=== PATIENT | female | born 1935 | race American Indian/Alaskan Native ===

== ENCOUNTER 2017-07-29 12:12 | Inpatient (IN) | payer MEDICARE, MEDICAID ==
[2017-07-29 13:57] LABS: BASO # 0.1 K/uL (0.0-0.2); BASO % 1.1 % (0.0-2.0); EOS # 0.2 K/uL (0.0-0.7); EOS % 2.9 % (0.0-4.0); HEMATOCRIT 36.1 % (34.0-47.0); LYMPH # 1.9 K/uL (1.0-4.3); LYMPH % 27.9 % (20.0-40.0); MEAN CELL VOLUME 86.3 fL (81.0-99.0); MEAN CORPUSCULAR HEMOGLOBIN 28.4 pg (27.0-31.0); MEAN CORPUSCULAR HGB CONC 32.9 g/dL (33.0-37.0); MEAN PLATELET VOLUME 9.3 fL (7.2-11.7); MONO # 0.5 K/uL (0.0-0.8); MONO % 7.9 % (0.0-10.0); NRBC % 0.1 % (0.0-2.0); RED CELL DISTRIBUTION WIDTH 14.7 % (11.5-14.5); WHITE BLOOD COUNT 6.9 K/uL (4.8-10.8)
--- NOTE | 2017-07-29 13:57 | C.PDOC ---
History Of Present Illness 82 y/o female c/o being unable to ambulate, bilateral leg swelling, incontinence , and general fatigue for 2 months. Patient notes that the symptoms are chronic after being d/c 2 months prior and she reports that she cannot take care of herself. Oatient denies chest pain, SOB, or palpitations. No fever, chills, nausea, or vomiting. PMD: Zhen Felton Time Seen by Provider: 07/29/17 13:10 Chief Complaint (Nursing): Female Genitourinary History Per: Patient History/Exam Limitations: no limitations Onset/Duration Of Symptoms: Days (2 months, chronic) Current Symptoms Are (Timing): Still Present Severity: Mild Associated Symptoms: denies: Fever, Chills, Nausea, Vomiting Recent travel outside of the [place]: No Additional History Per: Patient Past Medical History Reviewed: Historical Data, Nursing Documentation, Vital Signs Vital Signs: Last Vital Signs Temp 98.0 F 07/29/17 15:46 Pulse 82 07/29/17 15:46 Resp 20 07/29/17 15:46 BP 152/88 H 07/29/17 15:46 Pulse Ox 98 07/29/17 15:46 - Medical History PMH: Gastrointestinal Ulcer, HTN Surgical History: Pacemaker Family History: States: Unknown Family Hx - Social History Hx Alcohol Use: No Hx Substance Use: No Review Of Systems Except As Marked, All Systems Reviewed And Found Negative. Constitutional: Positive for: Other (general fatigue). Negative for: Fever, Chills Cardiovascular: Negative for: Chest Pain, Palpitations Respiratory: Negative for: Shortness of Breath Gastrointestinal: Negative for: Nausea, Vomiting Genitourinary: Positive for: Incontinence Musculoskeletal: Positive for: Leg Pain (bilateral leg swelling), Other (Unable to ambulate) Neurological: Negative for: Headache Physical Exam - Physical Exam Appears: Well, Non-toxic, No Acute Distress Skin: Warm, Dry Head: Atraumatic, Normacephalic Eye(s): bilateral: Normal Inspection, PERRL, EOMI Oral Mucosa: Moist Chest: Symmetrical Cardiovascular: Rhythm Regular, No Murmur Respiratory: Normal Breath Sounds, No Rales, No Rhonchi, No Wheezing Gastrointestinal/Abdominal: Soft, No Tenderness, Hernia (Soft ?Umbilical hernia. ) Back: Normal Inspection, No CVA Tenderness Extremity: Normal ROM (x4), Pedal Edema (+2 pitting edema) Neurological/Psych: Oriented x3, Normal Speech, Normal Cognition ED Course And Treatment - Laboratory Results Result Diagrams: 07/29/17 13:52 07/29/17 13:52 O2 Sat by Pulse Oximetry: 98 (RA) Pulse Ox Interpretation: Normal Medical Decision Making Medical Decision Making: Present c/o being unable to ambulate, bilateral leg swelling, incontinence, and general fatigue s/p d/c 2 months prior. Plans: * EKG * Blood labs * CXR * UA * Urinary cath Patient needs correction care due to being unable to care for her ADL. EKG shows atrial sensed ventricular paced rhythm at 80bpm. Cxray negative. UA shows uti. Antibiotics and ucx ordered. Labs grossly normal. Spoke to Dr. Felton who will admit. Disposition - Disposition Disposition: HOSPITALIZED Disposition Time: 14:48 Condition: FAIR - Clinical Impression Clinical Impression: UTI (urinary tract infection) - Scribe Statement The provider has reviewed the documentation as recorded by the Scribgavin kelly All medical record entries made by the Scribgavin were at my direction and personally dictated by me. I have reviewed the chart and agree that the record accurately reflects my personal performance of the history, physical exam, medical decision making, and the department course for this patient. I have also personally directed, reviewed, and agree with the discharge instructions and disposition.
[2017-07-29 14:06] LABS: CHLORIDE 99 mmol/L (98-107); SODIUM 134 mmol/L (132-148)
[2017-07-29 14:07] LABS: POTASSIUM 3.9 mmol/L (3.6-5.2)
[2017-07-29 14:08] LABS: GFR AFRICAN-AMERICAN > 60
[2017-07-29 14:09] LABS: ALB/GLOB RATIO 0.8 (1.0-2.1); ALKALINE PHOSPHATASE 59 U/L (38-126); ALT/SGPT 16 U/L (9-52); AST/SGOT 19 U/L (14-36); BILIRUBIN,TOTAL 0.6 mg/dL (0.2-1.3); BLOOD UREA NITROGEN 25 mg/dL (7-17); CALCIUM 8.9 mg/dl (8.6-10.4); CARBON DIOXIDE 22 mmol/L (22-30); GLUCOSE,RANDOM 216 mg/dL (65-105); PHOSPHOROUS 3.3 mg/dL (2.5-4.5); TOTAL PROTEIN 8.2 g/dL (6.3-8.3)
[2017-07-29 14:10] LABS: MAGNESIUM 1.2 mg/dL (1.6-2.3)
[2017-07-29 14:42] LABS: RBC URINE 5 /hpf (0-3); URINE BACTERIA OCC (<OCC); URINE BILIRUBIN NEGATIVE (NEGATIVE); URINE BLOOD 1+ (NEGATIVE); URINE COLOR Yellow (YELLOW); URINE GLUCOSE (UA) 1+ mg/dL (Normal); URINE KETONE NEGATIVE (NEGATIVE); URINE LEUKOCYTE ESTERASE 3+ Leu/uL (Negative); URINE PROTEIN 2+ mg/dL (NEGATIVE); URINE UROBILINOGEN NORMAL mg/dL (0.2-1.0); WBC CLUMPS MOD /hpf; WBC URINE 579 /hpf (0-5)
--- NOTE | 2017-07-29 15:48 | RAD ---
HISTORY: fatigue COMPARISON: No prior. FINDINGS: LUNGS: No active pulmonary disease. PLEURA: No significant pleural effusion identified, no pneumothorax apparent. CARDIOVASCULAR: Mild cardiomegaly. Permanent pacemaker. No congestive change. OSSEOUS STRUCTURES: Bilateral rotator cuff insufficiency with superior subluxation of the humeral head. VISUALIZED UPPER ABDOMEN: Normal. OTHER FINDINGS: None. IMPRESSION: No active disease.
[2017-07-29] MEDS ORDERED: cefTRIAXone 500 MG in Sodium Chloride 0.9% 50 ML IVPB SCH (19:45)
--- NOTE | 2017-07-29 19:51 | CP.PCM.HP ---
History of Present Illness - History of Present Illness History of Present Illness: cc: non-ambulatory, severe UTI needing IV abx HPI: Pt is an 82 yo female, jena of [facility], who presented to the ED after several home visits revealed that pt hand been non-ambulatory since January 2017 after her last hospitalization at a local hospital. Pt had been eating and doing her ADLs on a recliner chair at home, and was changed from her soiled diapers after her family arrived from work in the evening. Essentially, pt was left unaccompanied for the whole day, which posed certain safety questions on my visit. Hence when the opportunity presented itself, I suggested bringing her to the hospital so she could get the help she needs and be "tuned up" to allow her to ambulate. Present on Admission - Present on Admission Any Indicators Present on Admission: No History of Uncontrolled Diabetes: Yes Urinary Catheter: No Decubitus Ulcer Present: No Review of Systems - Review of Systems Systems not reviewed;Unavailable: Other (pt tends to downplay her physical ailments and denies pain even when present so as "not marcelo a bother to anyone") - Cardiovascular Cardiovascular: Other Additional comments: true cardiovascular status unable to ascertain 2ndry to pt's limited mobility Past Patient History - Tetanus Immunizations Tetanus Immunization: Unknown - Past Medical History & Family History Past Medical History?: Yes - Past Social History Smoking Status: Never Smoked Chewing Tobacco Use: No Cigar Use: No Occupation: retired Alcohol: None Home Situation {Lives}: With Family, Other (but left alone during the day when family members at work or school) Domestic Violence: Negative - CARDIAC Hx Hypertension: Yes Hx Pacemaker: Yes - ENDOCRINE/METABOLIC Hx Endocrine Disorders: Yes Hx Diabetes Mellitus Type 1: Yes - GASTROINTESTINAL Hx Gastrointestinal Disorders: Yes - PSYCHIATRIC Hx Substance Use: No - SURGICAL HISTORY Hx Surgeries: Yes Other/Comment: PACEMAKER INSERTION, FIBROID REMOVAL Meds Allergies/Adverse Reactions: Allergies Allergy/AdvReac Type Severity Reaction Status Date / Time No Known Allergies Allergy Verified 07/29/17 12:28 Physical Exam - Constitutional Appears: No Acute Distress - Head Exam Head Exam: ATRAUMATIC, NORMAL INSPECTION, NORMOCEPHALIC - Eye Exam Eye Exam: Normal appearance Pupil Exam: NORMAL ACCOMODATION, PERRL - ENT Exam ENT Exam: Mucous Membranes Moist, Normal Exam, Normal Oropharynx - Neck Exam Neck exam: Positive for: Normal Inspection - Respiratory Exam Respiratory Exam: NORMAL BREATHING PATTERN - GI/Abdominal Exam GI & Abdominal Exam: Normal Bowel Sounds - Rectal Exam Rectal Exam: Deferred - Exam Exam: NORMAL INSPECTION (+ gross catheter to get accurate I&Os) - Extremities Exam Extremities exam: Positive for: joint swelling (at bilateral ankles), pedal pulses present - Neurological Exam Neurological exam: Alert, CN II-XII Intact, Oriented x3 - Psychiatric Exam Psychiatric exam: Normal Affect, Normal Mood - Skin Skin Exam: Intact, Normal Color Results - Vital Signs Recent Vital Signs: Last Vital Signs Temp 98.0 F 07/29/17 15:46 Pulse 88 07/29/17 18:29 Resp 88 H 07/29/17 18:29 BP 170/92 H 07/29/17 18:29 Pulse Ox 97 07/29/17 18:29 - Labs Result Diagrams: 07/31/17 06:15 07/31/17 06:15 Labs: Laboratory Results - last 24 hr 07/29/17 07/29/17 07/29/17 13:52 13:52 14:16 WBC 6.9 RBC 4.18 Hgb 11.9 Hct 36.1 MCV 86.3 MCH 28.4 MCHC 32.9 L RDW 14.7 H Plt Count 228 MPV 9.3 Neut % (Auto) 60.2 Lymph % (Auto) 27.9 Mason % (Auto) 7.9 Eos % (Auto) 2.9 Baso % (Auto) 1.1 Neut # 4.1 Lymph # 1.9 Mason # 0.5 Eos # 0.2 Baso # 0.1 Sodium 134 Potassium 3.9 Chloride 99 Carbon Dioxide 22 Anion Gap 16 BUN 25 H Creatinine 0.8 Est GFR ( Amer) > 60 Est GFR (Non-Af Amer) > 60 Random Glucose 216 H Calcium 8.9 Phosphorus 3.3 Magnesium 1.2 L Total Bilirubin 0.6 AST 19 ALT 16 Alkaline Phosphatase 59 Total Creatine Kinase 86 Troponin I < 0.0120 NT-Pro-B Natriuret Pep 749 Total Protein 8.2 Albumin 3.7 Globulin 4.6 H Albumin/Globulin Ratio 0.8 L Urine Color Yellow Urine Clarity Hazy Urine pH 5.0 Ur Specific [place] 1.011 Urine Protein 2+ H Urine Glucose (UA) 1+ Urine Ketones Negative Urine Blood 1+ H Urine Nitrate Negative Urine Bilirubin Negative Urine Urobilinogen Normal Ur Leukocyte Esterase 3+ H Urine WBC (Auto) 579 H Urine RBC (Auto) 5 H Urine WBC Clumps (Auto) Mod H Ur Squamous Epith Cells 2 Amorphous Sediment Rare H Urine Bacteria Occ H Assessment & Plan (1) Diabetes Assessment and Plan: determining actual medication requirements of patient, but initiation of insulin protocol without my knowledge interferes with this process. pls notify me before initiating therapy of this type because it delays early discharge and interferes with my plans for pt. Status: Acute (2) Hypertension Assessment and Plan: uncontrolled despite adequate treatment with ARB, loop diuretic and beta shavonne. Will initiate CCB Status: Acute (3) UTI (urinary tract infection) with pyuria Assessment and Plan: needs IV abx since pt has been having incontinence for months Status: Acute Decision To Admit - Pt Status Changed To: Hospital Disposition Of: Inpatient - Admit Certification Admit to Inpatient:: After my assessment, the patient will require hospitalization for at least two midnights. This is because of the severity of symptoms shown, intensity of services needed, and/or the medical risk in this patient being treated as an outpatient. - InPatient: Physician Admission Certification:: Pt has multiple co-morbid conditions that need to be fixed including her inability to walk since her last hospitalization. Patient has not been worked up adequately and needs to be re- examined in order to improve the patient's quality of life and avoid further deteriorationin her physical condition. - . Bed Request Type: Regular
[2017-07-29 21:04] VITALS: RESP 20
[2017-07-29] MEDS: Potassium Chloride 20 mEq ER Tab PO SCH (23:53)
[2017-07-30] MEDS: cefTRIAXone 500 MG in Sodium Chloride 0.9% 50 ML IVPB SCH ×2 (03:00→14:11)
[2017-07-30] MEDS: Enoxaparin 40 mg Syringe SC SCH (09:09)
[2017-07-30] MEDS: Potassium Chloride 20 mEq ER Tab PO SCH ×2 (09:11→21:32)
[2017-07-30] MEDS: (Novolin R) Insulin Human Regular 100 units/ml vial SC SCH ×3 (11:53→22:35)
[2017-07-30] MEDS ORDERED: (Novolin R) Insulin Human Regular 100 units/ml vial SC SCH (16:30)
--- NOTE | 2017-07-30 17:15 | CP.PCM.PN ---
Subjective - Date & Time of Evaluation Date of Evaluation: 07/30/17 Time of Evaluation: 17:15 - Subjective Subjective: Pt seen and evaluated at her room today. Pt's BS being followed to determine correct dosing of her DM meds, Hence I did not put her on SSI but only on coverage to determine her true BS levels. She is on a miniscule amount of long- acting insulin which can be easily covered by oral hypoglycemic meds. > Noted superior subluxation of pt's humeral head onto the AC joint. Will obtain Xray of bilateral shoulders to ascertain degree of disease,hopefully, more accurately. Explained to pt plans for her and I am aware of her desire to go home. Explained to pt that I, in turn, would like her to at least be able to go toilet herself by walking by herself to the bathroom. I assured her that life does not need to be the way it was, but it all depends on her and how much effort she will expend to achieve those goals. Pt verbalized understanding. Objective - Vital Signs/Intake and Output Vital Signs (last 24 hours): Temp Pulse Resp BP Pulse Ox 98.1 F 83 20 129/75 99 07/30/17 15:00 07/30/17 15:40 07/30/17 15:00 07/30/17 15:00 07/30/17 15:40 Intake and Output: 07/30/17 07/30/17 06:59 18:59 Intake Total 600 Output Total 1100 Balance -500 - Medications Medications: Current Medications Enoxaparin Sodium (Lovenox) 40 mg SC DAILY [facility] Last Admin: 07/30/17 09:09 Dose: 40 mg Furosemide (Lasix) 20 mg IVP DAILY [facility] Last Admin: 07/30/17 09:09 Dose: 20 mg Ceftriaxone Sodium 500 mg/ (Sodium Chloride) 50 mls @ 100 mls/hr IVPB Q12H [facility] Last Admin: 07/30/17 14:11 Dose: 100 mls/hr Insulin Human Regular (Novolin R) 0 unit SC ACHS [facility] PRN Reason: Protocol Last Admin: 07/30/17 11:53 Dose: 6 unit Losartan Potassium (Cozaar) 100 mg PO DAILY [facility] Last Admin: 07/30/17 09:09 Dose: 100 mg Metformin HCl (Glucophage Xr) 750 mg PO DAILY [facility] Metoprolol Tartrate (Lopressor) 50 mg PO BID [facility] Last Admin: 07/30/17 09:08 Dose: 50 mg Pneumococcal Polyvalent Vaccine (Pneumovax 23 Vaccine) 0.5 ml IM .ONCE ONE Stop: 08/02/17 10:01 Potassium Chloride (K-Dur 20 Meq Er Tab) 20 meq PO Q12 [facility] Last Admin: 07/30/17 09:11 Dose: 20 meq Sitagliptin Phosphate (Januvia) 50 mg PO DAILY [facility] - Labs Labs: 07/29/17 13:52 07/29/17 13:52 - Constitutional Appears: No Acute Distress - Head Exam Head Exam: ATRAUMATIC, NORMAL INSPECTION, NORMOCEPHALIC - Eye Exam Eye Exam: Normal appearance - ENT Exam ENT Exam: Normal Exam - Neck Exam Neck Exam: Normal Inspection - Respiratory Exam Respiratory Exam: Clear to Ausculation Bilateral, NORMAL BREATHING PATTERN - Cardiovascular Exam Cardiovascular Exam: REGULAR RHYTHM - GI/Abdominal Exam GI & Abdominal Exam: Distended, Firm, Hypoactive Bowel Sounds - Rectal Exam Rectal Exam: Deferred - Extremities Exam Additional comments: unable to abduct R upper extremiy beyond 35 degrees from the vertical; LUE does not go beyond 60 degrees before she starts feeling pain. > lower extremities a lot less swollen than on admission. 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 > + signficant arthritis of both AC joints as well Status: Acute
[2017-07-30 23:09] LABS: RBC URINE 124 /hpf (0-3); TRANSITIONAL EPITHIAL 1 /hpf (0-3); URINE BACTERIA FEW (<OCC); URINE BILIRUBIN NEGATIVE (NEGATIVE); URINE BLOOD 3+ (NEGATIVE); URINE COLOR Yellow (YELLOW); URINE GLUCOSE (UA) NORMAL (Normal); URINE KETONE NEGATIVE (NEGATIVE); URINE LEUKOCYTE ESTERASE 3+ Leu/uL (Negative); URINE PROTEIN 2+ mg/dL (NEGATIVE); URINE UROBILINOGEN NORMAL mg/dL (0.2-1.0); WBC CLUMPS FEW /hpf; WBC URINE 528 /hpf (0-5)
[2017-07-31] MEDS: cefTRIAXone 500 MG in Sodium Chloride 0.9% 50 ML IVPB SCH ×2 (03:09→14:13)
[2017-07-31 06:26] LABS: BASO % 0.7 % (0.0-2.0); EOS # 0.2 K/uL (0.0-0.7); HEMATOCRIT 34.5 % (34.0-47.0); LYMPH # 2.8 K/uL (1.0-4.3); LYMPH % 38.6 % (20.0-40.0); MEAN CELL VOLUME 85.8 fL (81.0-99.0); MEAN CORPUSCULAR HEMOGLOBIN 28.6 pg (27.0-31.0); MEAN CORPUSCULAR HGB CONC 33.4 g/dL (33.0-37.0); MEAN PLATELET VOLUME 9.3 fL (7.2-11.7); MONO # 0.6 K/uL (0.0-0.8); MONO % 8.5 % (0.0-10.0); WHITE BLOOD COUNT 7.3 K/uL (4.8-10.8)
[2017-07-31 08:03] LABS: CHLORIDE 101 mmol/L (98-107); POTASSIUM 4.2 mmol/L (3.6-5.2); SODIUM 135 mmol/L (132-148)
[2017-07-31 08:06] LABS: BLOOD UREA NITROGEN 22 mg/dL (7-17); CALCIUM 8.7 mg/dl (8.6-10.4); CARBON DIOXIDE 23 mmol/L (22-30); GFR AFRICAN-AMERICAN > 60; GLUCOSE,RANDOM 184 mg/dL (65-105)
[2017-07-31] MEDS: (Novolin R) Insulin Human Regular 100 units/ml vial SC SCH ×3 (08:33→17:38)
[2017-07-31] MEDS: Potassium Chloride 20 mEq ER Tab PO SCH ×2 (09:31→21:29)
[2017-07-31] MEDS: Enoxaparin 40 mg Syringe SC SCH (09:32)
--- NOTE | 2017-07-31 11:44 | RAD ---
PROCEDURE: Radiographs of both shoulders HISTORY: pathology re: shoulder joint; subluxation COMPARISON: No prior. FINDINGS: BONES: No destructive bone lesion bilaterally. No fracture identified either. Diffuse osteopenia suggests osteoporosis. JOINTS: Advanced degenerative changes seen at the bilateral acromioclavicular and glenohumeral joints more so on the right than left sides. At the right side, there is a pseudoarticulation with acromion and the humeral head suggesting gross pathology at the rotator cuff. Clinically correlate. MRI can be utilized for greater characterization a prominent glenoid osteophytes are appreciated. Lesser similar findings are present at the left shoulder. No dislocation bilaterally. Generator from cardiac pacemaker obscures the medial left shoulder anatomy somewhat. SOFT TISSUES: Right shoulder: Grossly unremarkable. Right shoulder: Grossly unremarkable. OTHER FINDINGS: None. IMPRESSION: Advanced degenerative joint disease is seen bilaterally but greater the right than left sides as discussed above. Further characterization if needed can be provided by CT or MRI.
--- NOTE | 2017-07-31 12:53 | CP.PCM.PN ---
Subjective - Date & Time of Evaluation Date of Evaluation: 07/31/17 Time of Evaluation: 13:00 - Subjective Subjective: Orthopedic consultation requested Dr. Garcia shoulder subluxation 82F admitted for UTI found incidentally on CXR to home superior subluxation of right shoulder glenohumeral joint. Patient has been non amublatory since January per chart. Patient states that she does not have any pain at this time. When specifically asked about her shoulders, she says her left shoulder pains her occasionally, but it is not hurting right now. She denies anynumbess/tingling/recent trauma/ falls.. Review of Systems - Review of Systems All systems: reviewed and no additional remarkable complaints except - Cardiovascular Cardiovascular: UNREMARKABLE - Respiratory Respiratory: UNREMARKABLE - Gastrointestinal Gastrointestinal: UNREMARKABLE - Musculoskeletal Musculoskeletal: As Par HPI - Integumentary Integumentary: UNREMARKABLE - Neurological Neurological: UNREMARKABLE - Hematologic/Lymphatic Hematologic: UNREMARKABLE Objective - Vital Signs/Intake and Output Vital Signs (last 24 hours): Temp Pulse Resp BP Pulse Ox 98.2 F 74 20 179/97 H 96 07/31/17 07:35 07/31/17 07:35 07/31/17 07:35 07/31/17 10:32 07/31/17 07:35 Intake and Output: 07/31/17 07/31/17 06:59 18:59 Intake Total 250 170 Output Total 800 550 Balance -550 -380 - Medications Medications: Current Medications Enoxaparin Sodium (Lovenox) 40 mg SC DAILY [facility] Last Admin: 07/31/17 09:32 Dose: 40 mg Furosemide (Lasix) 20 mg IVP DAILY [facility] Last Admin: 07/31/17 10:32 Dose: 20 mg Ceftriaxone Sodium 500 mg/ (Sodium Chloride) 50 mls @ 100 mls/hr IVPB Q12H [facility] Last Admin: 07/31/17 03:09 Dose: 100 mls/hr Insulin Human Regular (Novolin R) 0 unit SC ACHS [facility] PRN Reason: Protocol Last Admin: 07/31/17 08:33 Dose: 3 unit Losartan Potassium (Cozaar) 100 mg PO DAILY [facility] Last Admin: 07/31/17 09:29 Dose: 100 mg Metformin HCl (Glucophage Xr) 750 mg PO DAILY [facility] Last Admin: 07/31/17 09:30 Dose: 750 mg Metoprolol Tartrate (Lopressor) 50 mg PO BID [facility] Last Admin: 07/31/17 09:31 Dose: 50 mg Pneumococcal Polyvalent Vaccine (Pneumovax 23 Vaccine) 0.5 ml IM .ONCE ONE Stop: 08/02/17 10:01 Potassium Chloride (K-Dur 20 Meq Er Tab) 20 meq PO Q12 [facility] Last Admin: 07/31/17 09:31 Dose: 20 meq Sitagliptin Phosphate (Januvia) 50 mg PO DAILY [facility] Last Admin: 07/31/17 09:30 Dose: 50 mg - Labs Labs: 07/31/17 06:15 07/31/17 06:15 - Constitutional Appears: Well, No Acute Distress - Head Exam Head Exam: ATRAUMATIC - Respiratory Exam Respiratory Exam: NORMAL BREATHING PATTERN - Cardiovascular Exam Additional comments: +radial pulses bilaterally - Extremities Exam Additional comments: Patient lying supine in bed, rolls over and pulls herself to side and back up to assist getting herself off bed mclean. She uses both arms without pain. B shoulders: ROM WFL, sensation intact. no swelling/deformity/discoloration. 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 Garcia, agrees with above FWB BUE Status: Acute (2) Osteoarthritis of glenohumeral joints, bilateral Assessment & Plan: see above Status: Acute Radiology Interpretation - Radiology Interpretation #2 Interpretation: atient Name / ID : PERI [place] / [id number] Exam Date : 07/31/2017 10:45:33 ( Approved ) Study Comment : Sex / Age : F / 82Y Creator : Cole Norton MD Dictator : Cole Norton MD Alarm Installation Technician : Oncology Navigator : Cole Norton MD Approver2 : Report Date : 07/31/2017 11:39:11 My Comment : PROCEDURE: Radiographs of both shoulders HISTORY: pathology re: shoulder joint; subluxation COMPARISON: No prior. FINDINGS: BONES: No destructive bone lesion bilaterally. No fracture identified either. Diffuse osteopenia suggests osteoporosis. JOINTS: Advanced degenerative changes seen at the bilateral acromioclavicular and glenohumeral joints more so on the right than left sides. At the right side, there is a pseudoarticulation with acromion and the humeral head suggesting gross pathology at the rotator cuff. Clinically correlate. MRI can be utilized for greater characterization a prominent glenoid osteophytes are appreciated. Lesser similar findings are present at the left shoulder. No dislocation bilaterally. Generator from cardiac pacemaker obscures the medial left shoulder anatomy somewhat. SOFT TISSUES: Right shoulder: Grossly unremarkable. Right shoulder: Grossly unremarkable. OTHER FINDINGS: None. IMPRESSION: Advanced degenerative joint disease is seen bilaterally but greater the right than left sides as discussed above. Further characterization if needed can be provided by CT or MRI. Past Patient History - Past Medical History & Family History Past Medical History?: Yes Past Family History: Reviewed and not pertinent - Past Social History Smoking Status: Never Smoked - CARDIAC Hx Cardiac Disorders: Yes (AFIB) Hx Hypertension: Yes - PULMONARY Hx Respiratory Disorders: No - NEUROLOGICAL Hx Neurological Disorder: No - RENAL Hx Chronic Kidney Disease: No - ENDOCRINE/METABOLIC Hx Diabetes Mellitus Type 1: Yes - HEMATOLOGICAL/ONCOLOGICAL Hx Blood Disorders: No - INTEGUMENTARY Hx Dermatological Problems: No - MUSCULOSKELETAL/RHEUMATOLOGICAL Hx Arthritis: Yes (B/L KNEES, L SHOULDER) - GASTROINTESTINAL Hx Gastrointestinal Disorders: Yes Hx Gastritis: Yes - GENITOURINARY/GYNECOLOGICAL Hx Genitourinary Disorders: No - PSYCHIATRIC Hx Psychophysiologic Disorder: No Hx Substance Use: No - SURGICAL HISTORY Hx Surgeries: Yes Other/Comment: PACEMAKER INSERTION, FIBROID REMOVAL - ANESTHESIA Hx Anesthesia: Yes Hx Anesthesia Reactions: No Hx Malignant Hyperthermia: No
--- NOTE | 2017-08-01 00:07 | CP.PCM.PN ---
Subjective - Date & Time of Evaluation Date of Evaluation: 07/31/17 Time of Evaluation: 20:45 - Subjective Subjective: Pt seen and examined at bedside. Noted Ortho consultation in this document, appreciate your input. > Discussed with pt her disparate responses depending on who was seeing her. Pt complains of a lot of pain to PT, but denies all pain to the Orthopedic resident who interviewed pt. Apparently, though with some limitations, pt also does not complain as much to OT, as can be deduced from her notes. Explained to pt that the others who have seen her are there on my instructions and to help her. She needs to help all of us understand what she feels and what her hurt so that we can help her and not pit us against each other. Pt verbalized understanding and promised to be more forthcoming with her issues. Objective - Vital Signs/Intake and Output Vital Signs (last 24 hours): Temp Pulse Resp BP Pulse Ox 98 F 78 20 156/88 H 97 07/31/17 15:00 07/31/17 16:27 07/31/17 15:00 07/31/17 16:27 07/31/17 16:27 Intake and Output: 07/31/17 08/01/17 18:59 06:59 Intake Total 340 Output Total 3150 Balance -2810 - Medications Medications: Current Medications Enoxaparin Sodium (Lovenox) 40 mg SC DAILY [facility] Last Admin: 07/31/17 09:32 Dose: 40 mg Furosemide (Lasix) 20 mg IVP DAILY [facility] Last Admin: 07/31/17 10:32 Dose: 20 mg Hydralazine HCl (Apresoline) 25 mg PO Q12 [facility] Ceftriaxone Sodium 500 mg/ (Sodium Chloride) 50 mls @ 100 mls/hr IVPB Q12H [facility] Last Admin: 07/31/17 14:13 Dose: 100 mls/hr Losartan Potassium (Cozaar) 100 mg PO DAILY [facility] Last Admin: 07/31/17 09:29 Dose: 100 mg Metformin HCl (Glucophage Xr) 750 mg PO DAILY [facility] Last Admin: 07/31/17 09:30 Dose: 750 mg Metoprolol Succinate (Toprol Xl) 100 mg PO DAILY [facility] Pneumococcal Polyvalent Vaccine (Pneumovax 23 Vaccine) 0.5 ml IM .ONCE ONE Stop: 08/02/17 10:01 Potassium Chloride (K-Dur 20 Meq Er Tab) 20 meq PO Q12 [facility] Last Admin: 07/31/17 21:29 Dose: 20 meq Sitagliptin Phosphate (Januvia) 50 mg PO DAILY [facility] Last Admin: 07/31/17 09:30 Dose: 50 mg - Labs Labs: 07/31/17 06:15 07/31/17 06:15 - Constitutional Appears: No Acute Distress - Head Exam Head Exam: ATRAUMATIC, NORMAL INSPECTION, NORMOCEPHALIC - Eye Exam Eye Exam: Normal appearance Pupil Exam: NORMAL ACCOMODATION - ENT Exam ENT Exam: Mucous Membranes Moist, Normal Exam - Neck Exam Neck Exam: Normal Inspection - Respiratory Exam Respiratory Exam: Clear to Ausculation Bilateral, NORMAL BREATHING PATTERN - Cardiovascular Exam Cardiovascular Exam: REGULAR RHYTHM - GI/Abdominal Exam GI & Abdominal Exam: Normal Bowel Sounds - Rectal Exam Rectal Exam: Deferred - Exam Exam: NORMAL INSPECTION (+gross catheter with less concentrated urine today than yesterday) - Extremities Exam Extremities Exam: Normal Capillary Refill, Normal Inspection (of lower extremities; + pain on Shoulder joint abduction, milan against resistance) - Back Exam Back Exam: NORMAL INSPECTION - Neurological Exam Neuro motor strength exam: Left Upper Extremity: 2/1 (at shoulder joint strength ), Right Upper Extremity: 2/1 (at shoulder joint strength), Left Lower Extremity : 3, Right Lower Extremity: 3 - Psychiatric Exam Psychiatric exam: Normal Affect, Normal Mood - Skin Skin Exam: Dry, Intact, Normal Color, Warm Assessment and Plan (1) Hypertension Assessment & Plan: titating pt's meds for HTN as her home dose obviously was not adequate based on her hospital readings. Status: Acute (2) UTI (urinary tract infection) with pyuria Assessment & Plan: continues to be on IV abx. 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 TO ANP: pls do not re-start pt's SSI and do not put pt's on SSI unless you clear with me. I did not forget, it was intentionally left out. Status: Acute
[2017-08-01] MEDS: cefTRIAXone 500 MG in Sodium Chloride 0.9% 50 ML IVPB SCH ×2 (03:05→16:00)
[2017-08-01] MEDS: Potassium Chloride 20 mEq ER Tab PO SCH (09:47)
[2017-08-01] MEDS: Naproxen 275 mg Tab PO SCH ×4 (09:49→21:22)
[2017-08-01] MEDS: Enoxaparin 40 mg Syringe SC SCH (09:51)
--- NOTE | 2017-08-01 10:43 | RAD ---
PROCEDURE: Bilateral Knee Radiographs. HISTORY: difficulty walking upright; to det if bone patho COMPARISON: None. FINDINGS: BONES: Right Knee: No fracture. Left Knee: No fracture JOINTS: Right Knee: Severe tricompartmental Left knee: Severe tricompartmental SOFT TISSUES: Right Knee: Arterial vascular calcifications Left Knee: Arterial vascular calcifications JOINT EFFUSION: Right Knee: Possible small Left Knee: Possible small OTHER FINDINGS: Bilateral valgus orientation. IMPRESSION: Severe bilateral osteoarthrosis -the left medial femoral tibial the right lateral femoral tibial compartments and each patellofemoral -severely affected Likely degenerative debris surrounding/within each knee joint.
--- NOTE | 2017-08-01 12:47 | CP.PCM.CON ---
History of Present Illness - History of Present Illness History of Present Illness: I was asked to see patient by Dr Felton Patient is a 82 year old female with PMH THn, sick sinus syndrome s/p PPM ([facility]) who presents with UTI. The patient was noted to have weakness and complained of chest pain. She is not ambulatory. Review of Systems - Constitutional Constitutional: Fatigue - EENT Eyes: absent: As Per HPI, Blind Spots, Blurred Vision, Change in Vision, Decreased Night Vision, Diplopia, Discharge, Dry Eye, Exophthalmos, Floaters, Irritation, Itchy Eyes, Loss of Peripheral Vision, Pain, Photophobia, Requires Corrective Lenses, Sees Flashes, Spots in Vision, Tunnel Vision, Other Visual Disturbances, Loss of Vision, Other Ears: absent: As Per HPI, Decreased Hearing, Ear Discharge, Ear Pain, Tinnitus, Abnormal Hearing, Disequilibrium, Dizziness, Other Nose/Mouth/Throat: absent: As Per HPI, Epistaxis, Nasal Congestion, Nasal Discharge, Nasal Obstruction, Nasal Trauma, Nose Pain, Post Nasal Drip, Sinus Pain, Sinus Pressure, Bleeding Gums, Change in Voice, Dental Pain, Dry Mouth, Dysphagia, Halitosis, Hoarsness, Lip Swelling, Mouth Lesions, Mouth Pain, Odynophagia, Sore Throat, Throat Swelling, Tongue Swelling, Facial Pain, Neck Pain, Neck Mass, Other - Cardiovascular Cardiovascular: absent: As Per HPI, Acrocyanosis, Chest Pain, Chest Pain at Rest , Chest Pain with Activity, Claudication, Diaphoresis, Dyspnea, Dyspnea on Exertion, Edema, Irregular Heart Rhythm, Pain Radiating to Arm/Neck/Jaw, Leg Edema, Leg Ulcers, Lightheadedness, Orthopnea, Palpitations, Paroxysmal Nocturnal Dyspnea, Pedal Edema, Radiating Pain, Rapid Heart Rate, Slow Heart Rate, Syncope, Other - Respiratory Respiratory: absent: As Per HPI, Cough, Dyspnea, Hemoptysis, Dyspnea on Exertion , Wheezing, Snoring, Stridor, Pain on Inspiration, Chest Congestion, Excessive Mucous Production, Change in Mucous Color, Pain with Coughing, Other - Gastrointestinal Gastrointestinal: absent: As Per HPI, Abdominal Pain, Belching, Bloating, Change in Bowel Habits, Change in Stool Character, Coffee Ground Emesis, Constipation, Cramping, Diarrhea, Dyspepsia, Dysphagia, Early Satiety, Excessive Flatus, Fecal Incontinence, Heartburn, Hematemesis, Hematochezia, Loose Stools, Melena, Nausea, Odynophagia, Temesmus, Vomiting, Other - Genitourinary Genitourinary: absent: As Per HPI, Change in Urinary Stream, Difficulty Urinating, Dysuria, Flank Pain, Hematuria, Pyuria, Nocturia, Urinary Incontinence, Urinary Frequency, Urinary Hesitance, Urinary Urgency, Voiding Freq/Small Amts, Freq UTI, Hx Renal/Bladder Calculi, Hx /Renal Surgery, Bladder Distension, Other - Musculoskeletal Musculoskeletal: absent: As Per HPI, Abnormal Gait, Arthralgias, Atrophy, Back Pain, Deformity, Joint Swelling, Limited Range of Motion, Loss of Height, Muscle Cramps, Muscle Weakness, Myalgias, Neck Pain, Numbness, Radiating Pain into Limb, Stiffness, Tingling, Other - Integumentary Integumentary: absent: As Per HPI, Acne, Alopecia, Bleeding Lesions, Change in Hair, Change in Nails, Change in Pigmentation, Changing Lesions, Dry Skin, Erythema, Furuncle, Hirsutism, Lesions, New Lesions, Non-Healing Lesions, Photosensitivity, Pruritus, Rash, Skin Pain, Skin Ulcer, Sores, Striae, Swelling , Unusual Bruising, Wounds, Jaundice, Other - Neurological Neurological: absent: As Per HPI, Abnormal Gait, Abnormal Hearing, Abnormal Movements, Abnormal Speech, Behavioral Changes, Burning Sensations, Confusion, Convulsions, Disequilibrium, Dizziness, Numbness, Focal Weakness, Frequent Falls , Headaches, Lack of Coordination, Loss of Vision, Memory Loss, Paresthesias, Radicular Pain, Restless Legs, Sensory Deficit, Syncope, Tingling, Tremor, Vertigo, Weakness, Other Visual Disturbances, Other - Psychiatric Psychiatric: absent: As Per HPI, Abnormal Sleep Pattern, Anhedonia, Anxiety, Auditory Hallucinations, Behavioral Changes, Change in Appetite, Change in Libido, Confusion, Depression, Difficulty Concentrating, Hallucinations, Homicidal Ideation, Hopelessness, Irritability, Memory Loss, Mood Swings, Panic Attacks, Paranoia, Suicidal Ideation, Visual Hallucinations, Tactile Hallucinations, Other - Endocrine Endocrine: absent: As Per HPI, Change in Body Appearance, Change in Libido, Cold Intolorance, Deepening of Voice, Excessive Sweating, Fatigue, Flushing, Heat Intolorance, Increase in Ring/Shoe/Hat Size, Palpitations, Polydipsia, Polyphagia, Polyuria, Other - Hematologic/Lymphatic Hematologic: absent: As Per HPI, Easy Bleeding, Easy Bruising, Lymphadenopathy, Other Past Patient History - Tetanus Immunizations Tetanus Immunization: Unknown - Past Medical History & Family History Past Medical History?: Yes - Past Social History Smoking Status: Never Smoked Chewing Tobacco Use: No Cigar Use: No Occupation: retired Alcohol: None Home Situation {Lives}: With Family, Other (but left alone during the day when family members at work or school) Domestic Violence: Negative - CARDIAC Hx Hypertension: Yes Hx Pacemaker: Yes - PULMONARY Hx Respiratory Disorders: No - NEUROLOGICAL Hx Neurological Disorder: No - RENAL Hx Chronic Kidney Disease: No - ENDOCRINE/METABOLIC Hx Endocrine Disorders: Yes Hx Diabetes Mellitus Type 1: Yes - HEMATOLOGICAL/ONCOLOGICAL Hx Blood Disorders: No - INTEGUMENTARY Hx Dermatological Problems: No - MUSCULOSKELETAL/RHEUMATOLOGICAL Hx Arthritis: Yes (B/L KNEES, L SHOULDER) - GASTROINTESTINAL Hx Gastrointestinal Disorders: Yes - GENITOURINARY/GYNECOLOGICAL Hx Genitourinary Disorders: No - PSYCHIATRIC Hx Substance Use: No - SURGICAL HISTORY Hx Surgeries: Yes Other/Comment: PACEMAKER INSERTION, FIBROID REMOVAL - ANESTHESIA Hx Anesthesia: Yes Hx Anesthesia Reactions: No Hx Malignant Hyperthermia: No Meds Allergies/Adverse Reactions: Allergies Allergy/AdvReac Type Severity Reaction Status Date / Time No Known Allergies Allergy Verified 07/29/17 12:28 - Medications Medications: Current Medications Enoxaparin Sodium (Lovenox) 40 mg SC DAILY [facility] Last Admin: 08/01/17 09:51 Dose: 40 mg Furosemide (Lasix) 20 mg IVP DAILY [facility] Last Admin: 08/01/17 09:52 Dose: 20 mg Hydralazine HCl (Apresoline) 25 mg PO Q12 [facility] Last Admin: 08/01/17 10:26 Dose: 25 mg Ceftriaxone Sodium 500 mg/ (Sodium Chloride) 50 mls @ 100 mls/hr IVPB Q12H [facility] Last Admin: 08/01/17 03:05 Dose: 100 mls/hr Losartan Potassium (Cozaar) 100 mg PO DAILY [facility] Last Admin: 08/01/17 09:47 Dose: 100 mg Metformin HCl (Glucophage Xr) 750 mg PO DAILY [facility] Last Admin: 08/01/17 09:50 Dose: 750 mg Metoprolol Succinate (Toprol Xl) 100 mg PO DAILY [facility] Naproxen (Anaprox) 275 mg PO Q12 [facility] Last Admin: 08/01/17 12:31 Dose: Not Given Pneumococcal Polyvalent Vaccine (Pneumovax 23 Vaccine) 0.5 ml IM .ONCE ONE Stop: 08/02/17 10:01 Sitagliptin Phosphate (Januvia) 50 mg PO DAILY [facility] Last Admin: 08/01/17 09:47 Dose: 50 mg Physical Exam - Constitutional Appears: Non-toxic - Head Exam Head Exam: NORMAL INSPECTION - Eye Exam Eye Exam: Normal appearance - ENT Exam ENT Exam: Mucous Membranes Moist - Neck Exam Neck exam: Positive for: Full Rom - Respiratory Exam Respiratory Exam: NORMAL BREATHING PATTERN - Cardiovascular Exam Cardiovascular Exam: REGULAR RHYTHM, Systolic Murmur - GI/Abdominal Exam GI & Abdominal Exam: Normal Bowel Sounds - Rectal Exam Rectal Exam: Deferred - Extremities Exam Extremities exam: Negative for: pedal edema - Back Exam Back exam: NORMAL INSPECTION - Neurological Exam Neurological exam: Alert, Oriented x3 - Psychiatric Exam Psychiatric exam: Normal Affect - Skin Skin Exam: Normal Color Results - Vital Signs Recent Vital Signs: Last Vital Signs Temp 98 F 08/01/17 08:35 Pulse 77 08/01/17 08:35 Resp 20 08/01/17 08:35 BP 130/78 08/01/17 09:52 Pulse Ox 96 08/01/17 08:35 - Labs Result Diagrams: 07/31/17 06:15 07/31/17 06:15 Labs: Laboratory Results - last 24 hr 07/31/17 07/31/17 08/01/17 16:18 21:06 07:25 POC Glucose (mg/dL) 238 H 178 H 216 H 08/01/17 11:26 POC Glucose (mg/dL) 262 H - EKG Data EKG Interpreted by: Myself Assessment & Plan (1) Aortic stenosis Assessment and Plan: I reviewed the echocardiogram. There is calcification of the aortic valve and severe aortic vavle stenosis. I recommend conservative therapy. Patient is not symptomatic. Avoid hypotension. Status: Acute (2) Hypertension Assessment and Plan: blood pressure control. will avoid afterload reduction Status: Acute
[2017-08-01] MEDS: Metoprolol Succinate 100 mg XL Tab PO SCH (20:35)
--- NOTE | 2017-08-01 23:51 | CP.PCM.PN ---
Subjective - Date & Time of Evaluation Date of Evaluation: 08/01/17 Time of Evaluation: 20:30 - Subjective Subjective: Reviewed oevents of the day, including critical loss of cartilage with resultant severe OA of both knees. Poses a difficult dilemma for pt and family since if pt refuses knee arthroplasty, which she is most prob going to do, it will confine her to thhe recliner and will be facing a very poor quality of life in the immediate future. I know that the children would want her to have the surgery so there would at least be a chance for her to walk, but bec of patient's weight, this may prove to be the hardest thing to overcome should she decide to have a knee replacement;.Appreciate everyone's s tiptoing around my temper > Per cardio, pt also has severe aortic stenosis. Will discuss with pt and family these developments and how they also impact rehab potential. Objective - Vital Signs/Intake and Output Vital Signs (last 24 hours): Temp Pulse Resp BP Pulse Ox 97.4 F L 72 20 130/78 98 08/01/17 15:00 08/01/17 15:51 08/01/17 15:00 08/01/17 15:51 08/01/17 15:51 Intake and Output: 08/01/17 08/02/17 18:59 06:59 Intake Total 500 350 Output Total 1200 500 Balance -700 -150 - Medications Medications: Current Medications Enoxaparin Sodium (Lovenox) 40 mg SC DAILY [facility] Last Admin: 08/01/17 09:51 Dose: 40 mg Furosemide (Lasix) 20 mg IVP DAILY [facility] Last Admin: 08/01/17 09:52 Dose: 20 mg Hydralazine HCl (Apresoline) 25 mg PO Q12 [facility] Last Admin: 08/01/17 21:22 Dose: 25 mg Ceftriaxone Sodium 500 mg/ (Dextrose) 50 mls @ 100 mls/hr IVPB Q12H [facility] Losartan Potassium (Cozaar) 100 mg PO DAILY [facility] Last Admin: 08/01/17 09:47 Dose: 100 mg Metformin HCl (Glucophage Xr) 750 mg PO DAILY [facility] Last Admin: 08/01/17 09:50 Dose: 750 mg Metoprolol Succinate (Toprol Xl) 100 mg PO DAILY [facility] Last Admin: 08/01/17 20:35 Dose: 100 mg Naproxen (Anaprox) 275 mg PO Q12 [facility] Last Admin: 08/01/17 21:22 Dose: 275 mg Pneumococcal Polyvalent Vaccine (Pneumovax 23 Vaccine) 0.5 ml IM .ONCE ONE Stop: 08/02/17 10:01 Sitagliptin Phosphate (Januvia) 50 mg PO DAILY [facility] Last Admin: 08/01/17 09:47 Dose: 50 mg - Labs Labs: 07/31/17 06:15 07/31/17 06:15 - Constitutional Appears: No Acute Distress - Head Exam Head Exam: ATRAUMATIC, NORMAL INSPECTION, NORMOCEPHALIC - Eye Exam Eye Exam: Normal appearance Pupil Exam: NORMAL ACCOMODATION, PERRL - ENT Exam ENT Exam: Mucous Membranes Moist, Normal Exam - Neck Exam Neck Exam: Full ROM, Normal Inspection - Respiratory Exam Respiratory Exam: Clear to Ausculation Bilateral, NORMAL BREATHING PATTERN - Cardiovascular Exam Cardiovascular Exam: REGULAR RHYTHM - GI/Abdominal Exam GI & Abdominal Exam: Guarding, Rigid - Rectal Exam Rectal Exam: Deferred - Exam Exam: NORMAL INSPECTION External exam: NORMAL EXTERNAL EXAM Speculum exam: NORMAL SPECULUM EXAM Bimanual exam: NORMAL BIMANUAL EXAM - Extremities Exam Extremities Exam: Calf Tenderness, Full ROM, Joint Swelling, Normal Capillary Refill - Back Exam Back Exam: absent: CVA tenderness (L), CVA tenderness (R), Full ROM, muscle spasm, NORMAL INSPECTION, paraspinal tenderness, rash noted, tenderness, vertebral tenderness - Neurological Exam Neurological Exam: absent: Abnormal Gait, Alert, Altered, Awake, CN II-XII Intact, Motor Sensory Deficit, Normal Gait, Oriented x3, Reflexes Normal Neuro motor strength exam: Left Upper Extremity: 3, Right Upper Extremity: 4, Left Lower Extremity: 2/1, Right Lower Extremity: 2/1 - Psychiatric Exam Psychiatric exam: Anxious, Normal Affect, Normal Mood - Skin Skin Exam: Normal Color Assessment and Plan (1) Hypertension Assessment & Plan: controlled. noted Cardio recommendations to not be overly aggressive with hypertension treatment as the aortic stenosis is blocking outflow already Status: Acute (2) UTI (urinary tract infection) with pyuria Assessment & Plan: improved. awaiting placement with [facility]. 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 will advise pt and family of results. pt will always disagree about any surgery as she thinks she is not worth the effort. Status: Chronic (4) Diabetes Assessment & Plan: will add medsTroy Flores on board Status: Acute
--- NOTE | 2017-08-02 00:13 | CARD ---
APPROVED REPORT EXAM: Two-dimensional and M-mode echocardiogram with Doppler and color Doppler. Other Information Quality : GoodRhythm : NSR INDICATION HTN, WITH PACEMAKER STACEY EDEMA RISK FACTORS Hypertension 2D DIMENSIONS LVOT Diameter1.8 (1.8-2.4cm) M-Mode DIMENSIONS RVDd0.66 (2.1-3.2cm)Left Atrium (MM)3.48 (2.5-4.0cm) IVSd0.89 (0.7-1.1cm)Aortic Root3.51 (2.2-3.7cm) LVDd4.39 (4.0-5.6cm)Aortic Cusp Exc.1.09 (1.5-2.0cm) PWd1.03 (0.7-1.1cm)FS (%) 29 % LVDs3.10 (2.0-3.8cm)LVEF (%)57 (>50%) Aortic Valve AoV Peak Teyweicu485.4cm/sAoV VTI54.1cmAO Peak GR.32mmHg LVOT Peak Rdqvevyj941.3cm/sLVOT VTI21.61cmAO Mean GR.20mmHg OLLIE (VMAX)1.22xn6VZS (VTI)1.00cm2 Mitral Valve MV E Gbxjfsrj31.1cm/sMV A Uakwjkdg199.8cm/sMV CTZ44lo E/A ratio0.5MVA (PHT)2.87cm2 TDI E/Lateral E'0.0E/Medial E'0.0 Tricuspid Valve TR Peak Lnljahnj577gn/sTR Peak Gr.39hoCtFNJJ17qvNr LEFT VENTRICLE The left ventricle is normal size. There is normal left ventricular wall thickness. Left ventricle systolic function is normal. The Ejection Fraction is 55-60%. There is normal LV segmental wall motion. Transmitral Doppler flow pattern is abnormal.Grade I-abnormal relaxation pattern. No left ventricle thrombus noted on this study. RIGHT VENTRICLE The right ventricle is normal size. The right ventricular systolic function is normal. ATRIA The left atrium size is normal. The right atrium size is normal. AORTIC VALVE The aortic valve is moderately calcified. No aortic regurgitation is present. There is moderate valvular aortic stenosis. Calculated aortic valve area is 1.0 cm2 with maximum pressure gradient of 32 mmHg and mean pressure gradient of 20 mmHg. MITRAL VALVE Mitral annular calcification is moderate. There is no evidence of mitral valve prolapse. There is no mitral valve stenosis. TRICUSPID VALVE The tricuspid valve is normal in structure and function. There is moderate to severe tricuspid regurgitation. Right ventricular systolic pressure is estimated at 50-60 mmHg. There is mild-moderate pulmonary hypertension. There is no tricuspid valve prolapse or vegetation. There is no tricuspid valve stenosis. PULMONIC VALVE The pulmonary valve is normal in structure. There is mild pulmonic valvular regurgitation. GREAT VESSELS The aortic root is normal in size. PERICARDIAL EFFUSION There is no pericardial effusion. There is no pleural effusion. <Conclusion> The left ventricle is normal size. Left ventricle systolic function is normal. The Ejection Fraction is 55-60%. Transmitral Doppler flow pattern is abnormal.Grade I-abnormal relaxation pattern. The right ventricle is normal size. The right ventricular systolic function is normal. There is moderate valvular aortic stenosis. Calculated aortic valve area is 1.0 cm2 with maximum pressure gradient of 32 mmHg and mean pressure gradient of 20 mmHg. There is moderate tricuspid regurgitation. There is mild-moderate pulmonary hypertension. There is mild pulmonic valvular regurgitation.
--- NOTE | 2017-08-02 02:07 | CON ---
DATE: 08/01/2017 REASON FOR CONSULT: Shoulder pain. HISTORY OF PRESENT ILLNESS: This is an 82-year-old female who was admitted to the hospital for a urinary tract infection, who on x-ray was noted to have some subluxation of her humeral head. She denies any history of trauma. She denies any pain at this time. She says that she has had a little bit of loss of range of motion in the left shoulder and some discomfort in the left shoulder since her pacemaker was placed a couple of years ago. She denies any numbness or tingling going down the arm. PHYSICAL EXAMINATION: On examination of the left shoulder, she has an anterior incision in the area of her pacemaker. There is no gross deformity or swelling. She is able to actively forward flex to about a 140 degrees. She does have some mild discomfort at the incision , some mild discomfort with Xavier sign. Exam is somewhat limited. Grossly she is neurovascularly intact. She has no areas of point tenderness to palpation. She is tolerating some cross chest adduction without significant pain. Evaluation of the right shoulder again shows no gross deformity. There are no incisions. She has full forward flexion and abduction. Again testing internal rotation is somewhat limited. She has no areas of point tenderness to palpation. She has a negative Xavier sign. Neurovascularly, she is grossly intact. LABORATORY DATA: X-rays that she had of her shoulders appear to have no acute fracture dislocations. She does appear to have bilateral high riding humeral heads. This may be indicative of chronic rotator cuff tears. IMPRESSION: Bilateral rotator cuff arthropathy. PLAN: Given that she is not having any significant pain, I would treat this conservatively with medications as needed. Also should she have some pain, Physical Therapy as an outpatient would be warranted. For now, no surgical intervention. She can follow up as an outpatient. Pio Garcia MD
--- NOTE | 2017-08-02 07:48 | CP.PCM.PN ---
Subjective - Date & Time of Evaluation Date of Evaluation: 08/02/17 Time of Evaluation: 07:40 - Subjective Subjective: patient has no complaints. Objective - Vital Signs/Intake and Output Vital Signs (last 24 hours): Temp Pulse Resp BP Pulse Ox 97.9 F 76 20 138/85 97 08/02/17 07:20 08/02/17 07:20 08/02/17 07:20 08/02/17 07:20 08/02/17 07:20 Intake and Output: 08/02/17 08/02/17 06:59 18:59 Intake Total 350 Output Total 500 Balance -150 - Medications Medications: Current Medications Enoxaparin Sodium (Lovenox) 40 mg SC DAILY [facility] Last Admin: 08/01/17 09:51 Dose: 40 mg Furosemide (Lasix) 20 mg IVP DAILY [facility] Last Admin: 08/01/17 09:52 Dose: 20 mg Hydralazine HCl (Apresoline) 25 mg PO Q12 [facility] Last Admin: 08/01/17 21:22 Dose: 25 mg Ceftriaxone Sodium 500 mg/ (Dextrose) 50 mls @ 100 mls/hr IVPB Q12H [facility] Last Admin: 08/02/17 03:29 Dose: 100 mls/hr Losartan Potassium (Cozaar) 100 mg PO DAILY [facility] Last Admin: 08/01/17 09:47 Dose: 100 mg Metformin HCl (Glucophage Xr) 750 mg PO DAILY [facility] Last Admin: 08/01/17 09:50 Dose: 750 mg Metoprolol Succinate (Toprol Xl) 100 mg PO DAILY [facility] Last Admin: 08/01/17 20:35 Dose: 100 mg Naproxen (Anaprox) 275 mg PO Q12 [facility] Last Admin: 08/01/17 21:22 Dose: 275 mg Pneumococcal Polyvalent Vaccine (Pneumovax 23 Vaccine) 0.5 ml IM .ONCE ONE Stop: 08/02/17 10:01 Sitagliptin Phosphate (Januvia) 50 mg PO DAILY [facility] Last Admin: 08/01/17 09:47 Dose: 50 mg - Labs Labs: 07/31/17 06:15 07/31/17 06:15 - Constitutional Appears: Non-toxic - Eye Exam Eye Exam: Normal appearance - ENT Exam ENT Exam: Mucous Membranes Moist - Neck Exam Neck Exam: Full ROM - Respiratory Exam Respiratory Exam: NORMAL BREATHING PATTERN - Cardiovascular Exam Cardiovascular Exam: REGULAR RHYTHM, Murmur - GI/Abdominal Exam GI & Abdominal Exam: Normal Bowel Sounds - Rectal Exam Rectal Exam: Deferred - Extremities Exam Extremities Exam: absent: Pedal Edema - Back Exam Back Exam: NORMAL INSPECTION - Neurological Exam Neurological Exam: Alert - Psychiatric Exam Psychiatric exam: Normal Affect - Skin Skin Exam: Normal Color Assessment and Plan (1) Aortic stenosis Assessment & Plan: clinically not in heart failure and no angina. The patient will need medical therapy. given comorbidiites, invasive management would be high risk. Status: Acute (2) Hypertension Assessment & Plan: monitor but avoid hypotension. Status: Acute
[2017-08-02] MEDS: Naproxen 275 mg Tab PO SCH ×2 (09:35→22:24)
[2017-08-02] MEDS: Metoprolol Succinate 100 mg XL Tab PO SCH (09:36)
[2017-08-02] MEDS ORDERED: Pneumococcal 23-Valent Vaccine IM ONE (10:00)
[2017-08-02] MEDS ORDERED: Influenza Vaccine 60 mcg/0.5 mL SYR (4YR UP) IM ONE (10:05)
[2017-08-02] MEDS: Enoxaparin 40 mg Syringe SC SCH (10:20)
--- NOTE | 2017-08-02 11:14 | CP.PCM.PN ---
Subjective - Date & Time of Evaluation Date of Evaluation: 08/02/17 Time of Evaluation: 11:11 - Subjective Subjective: Patient with B shoulder and knee pain L>R during PT. No new complaints. Review of Systems - Review of Systems All systems: reviewed and no additional remarkable complaints except - Cardiovascular Cardiovascular: UNREMARKABLE - Respiratory Respiratory: UNREMARKABLE - Gastrointestinal Gastrointestinal: UNREMARKABLE - Musculoskeletal Musculoskeletal: As Par HPI - Integumentary Integumentary: UNREMARKABLE - Neurological Neurological: Frequent Falls - Hematologic/Lymphatic Hematologic: UNREMARKABLE Objective - Vital Signs/Intake and Output Vital Signs (last 24 hours): Temp Pulse Resp BP Pulse Ox 97.9 F 76 20 130/70 97 08/02/17 07:20 08/02/17 07:20 08/02/17 07:20 08/02/17 09:36 08/02/17 07:20 Intake and Output: 08/02/17 08/02/17 06:59 18:59 Intake Total 350 Output Total 500 Balance -150 - Medications Medications: Current Medications Enoxaparin Sodium (Lovenox) 40 mg SC DAILY [facility] Last Admin: 08/01/17 09:51 Dose: 40 mg Furosemide (Lasix) 20 mg IVP DAILY [facility] Last Admin: 08/02/17 09:36 Dose: 20 mg Hydralazine HCl (Apresoline) 25 mg PO Q12 [facility] Last Admin: 08/02/17 09:36 Dose: 25 mg Ceftriaxone Sodium 500 mg/ (Sodium Chloride) 100 mls @ 100 mls/hr IVPB Q12H [facility] Losartan Potassium (Cozaar) 100 mg PO DAILY [facility] Last Admin: 08/02/17 09:36 Dose: 100 mg Metformin HCl (Glucophage Xr) 750 mg PO DAILY [facility] Last Admin: 08/02/17 09:36 Dose: 750 mg Metoprolol Succinate (Toprol Xl) 100 mg PO DAILY [facility] Last Admin: 08/02/17 09:36 Dose: 100 mg Naproxen (Anaprox) 275 mg PO Q12 [facility] Last Admin: 08/02/17 09:35 Dose: 275 mg Sitagliptin Phosphate (Januvia) 50 mg PO DAILY [facility] Last Admin: 08/02/17 09:35 Dose: 50 mg - Labs Labs: 07/31/17 06:15 07/31/17 06:15 - Constitutional Appears: Well, No Acute Distress - Respiratory Exam Respiratory Exam: NORMAL BREATHING PATTERN - Cardiovascular Exam Additional comments: +radial pulses +DP pulses calves soft NT neg homans - Extremities Exam Additional comments: B shoulders: ROM painfree WFL, minimally tender sensation intact - Back Exam Back Exam: Full ROM Additional comments: non tender - Neurological Exam Neurological Exam: Alert, Awake Neuro motor strength exam: Left Upper Extremity: 4 (Good strength, BUE/BLE 4 +, deconditioned), Right Upper Extremity: 4, Left Lower Extremity: 4, Right Lower Extremity: 4 - Psychiatric Exam Psychiatric exam: Normal Affect, Normal Mood - Skin Skin Exam: Dry, Intact, Normal Color, Warm Assessment and Plan (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 Garcia call for appt Status: Chronic (2) Osteoarthritis of glenohumeral joints, bilateral Status: Chronic (3) Degenerative arthritis of knee, bilateral Assessment & Plan: severe bilateral L>R tricompartmental arthritis of knees PT/OT encourage OOB pt can f/u as outpatient Status: Chronic
[2017-08-02] MEDS ORDERED: MethylPREDNISolone Depo 40 mg/ml Inj IAA ONE (12:26)
[2017-08-02] MEDS ORDERED: Bupivacaine HCl 0.5% PF (10 ml) Inj IJ ONE (12:27)
--- NOTE | 2017-08-02 12:52 | CP.PCM.PN ---
Subjective - Date & Time of Evaluation Date of Evaluation: 08/02/17 Time of Evaluation: 12:43 - Subjective Subjective: Reconsulted because pt complaining of b/l knee pain with ambulation. Xrays consistent with tricompartmental knee arthritis. Ultimately, pt may need knee replacement surgery if not medically contraindicated. Discussed steroid injections in knees prior to d/c however pt refused injections. For now, WBAT. Pt can follow up as an outpatient. Objective - Vital Signs/Intake and Output Vital Signs (last 24 hours): Temp Pulse Resp BP Pulse Ox 97.9 F 76 20 130/70 97 08/02/17 07:20 08/02/17 07:20 08/02/17 07:20 08/02/17 09:36 08/02/17 07:20 Intake and Output: 08/02/17 08/02/17 06:59 18:59 Intake Total 350 400 Output Total 500 600 Balance -150 -200 - Medications Medications: Current Medications Enoxaparin Sodium (Lovenox) 40 mg SC DAILY [facility] Last Admin: 08/01/17 09:51 Dose: 40 mg Furosemide (Lasix) 20 mg IVP DAILY [facility] Last Admin: 08/02/17 09:36 Dose: 20 mg Hydralazine HCl (Apresoline) 25 mg PO Q12 [facility] Last Admin: 08/02/17 09:36 Dose: 25 mg Ceftriaxone Sodium 500 mg/ (Sodium Chloride) 100 mls @ 100 mls/hr IVPB Q12H [facility] Losartan Potassium (Cozaar) 100 mg PO DAILY [facility] Last Admin: 08/02/17 09:36 Dose: 100 mg Metformin HCl (Glucophage Xr) 750 mg PO DAILY [facility] Last Admin: 08/02/17 09:36 Dose: 750 mg Metoprolol Succinate (Toprol Xl) 100 mg PO DAILY [facility] Last Admin: 08/02/17 09:36 Dose: 100 mg Naproxen (Anaprox) 275 mg PO Q12 [facility] Last Admin: 08/02/17 09:35 Dose: 275 mg Sitagliptin Phosphate (Januvia) 50 mg PO DAILY [facility] Last Admin: 08/02/17 09:35 Dose: 50 mg - Labs Labs: 07/31/17 06:15 07/31/17 06:15
--- NOTE | 2017-08-02 12:55 | CP.PCM.PN ---
Subjective - Date & Time of Evaluation Date of Evaluation: 08/02/17 Time of Evaluation: 12:37 - Subjective Subjective: Pt appears improved clinically and had lost 28 lbs since admission. Discussed case with Ortho and with pt's severe OA of shoulders and knees, they recommend Surgery for replacement when pt is medically cleared. Advised Ortho of medical issues especially and DM, which have to be addressed first before any other intervention happens. In the meantime, I had discussed plans with daughter, Ana Paula, re: who will try and convince pt to at least go to rehab at this point. This was the whole premise of ascertaining her condition in first place so that at least a couple of weeks, when pt is able to walk to the bathroom, is the goal of therapy at this point. Objective - Vital Signs/Intake and Output Vital Signs (last 24 hours): Temp Pulse Resp BP Pulse Ox 97.9 F 76 20 130/70 97 08/02/17 07:20 08/02/17 07:20 08/02/17 07:20 08/02/17 09:36 08/02/17 07:20 Intake and Output: 08/02/17 08/02/17 06:59 18:59 Intake Total 350 400 Output Total 500 600 Balance -150 -200 - Medications Medications: Current Medications Enoxaparin Sodium (Lovenox) 40 mg SC DAILY [facility] Last Admin: 08/01/17 09:51 Dose: 40 mg Furosemide (Lasix) 20 mg IVP DAILY [facility] Last Admin: 08/02/17 09:36 Dose: 20 mg Hydralazine HCl (Apresoline) 25 mg PO Q12 [facility] Last Admin: 08/02/17 09:36 Dose: 25 mg Ceftriaxone Sodium 500 mg/ (Sodium Chloride) 100 mls @ 100 mls/hr IVPB Q12H [facility] Losartan Potassium (Cozaar) 100 mg PO DAILY [facility] Last Admin: 08/02/17 09:36 Dose: 100 mg Metformin HCl (Glucophage Xr) 750 mg PO DAILY [facility] Last Admin: 08/02/17 09:36 Dose: 750 mg Metoprolol Succinate (Toprol Xl) 100 mg PO DAILY [facility] Last Admin: 08/02/17 09:36 Dose: 100 mg Naproxen (Anaprox) 275 mg PO Q12 [facility] Last Admin: 08/02/17 09:35 Dose: 275 mg Sitagliptin Phosphate (Januvia) 50 mg PO DAILY [facility] Last Admin: 08/02/17 09:35 Dose: 50 mg - Labs Labs: 07/31/17 06:15 07/31/17 06:15 - Constitutional Appears: No Acute Distress - Head Exam Head Exam: NORMAL INSPECTION - Eye Exam Eye Exam: Normal appearance Pupil Exam: NORMAL ACCOMODATION - ENT Exam ENT Exam: Mucous Membranes Moist, Normal Exam - Neck Exam Neck Exam: Normal Inspection - Respiratory Exam Respiratory Exam: Clear to Ausculation Bilateral, NORMAL BREATHING PATTERN - Cardiovascular Exam Cardiovascular Exam: REGULAR RHYTHM Additional comments: + PPM at L side of chest - GI/Abdominal Exam GI & Abdominal Exam: Hyperactive Bowel Sounds - Rectal Exam Rectal Exam: Deferred - Exam Exam: NORMAL INSPECTION - Extremities Exam Extremities Exam: Normal Inspection Additional comments: pedal edema much less than before if not resolved - Back Exam Back Exam: NORMAL INSPECTION - Neurological Exam Neurological Exam: Alert, Awake, CN II-XII Intact, Oriented x3 Neuro motor strength exam: Left Upper Extremity: 3, Right Upper Extremity: 3, Left Lower Extremity: 2/1, Right Lower Extremity: 2/1 - Psychiatric Exam Psychiatric exam: Normal Affect, Normal Mood - Skin Skin Exam: Dry, Intact, Normal Color, Warm Assessment and Plan (1) Hypertension Assessment & Plan: hold bp meds for SBP < 120 Status: Acute (2) UTI (urinary tract infection) with pyuria Assessment & Plan: will d/c IV abx when pt goes to [facility] Status: Acute (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 still start on combo metformin-glyburide Status: Acute (5) Aortic stenosis Assessment & Plan: severe aortic stenosis per Cardio and absolutely to avoid hypotension. Will ensure that this is carried out Status: Acute (6) Degenerative arthritis of knee, bilateral Assessment & Plan: even more severe than the shoulders but needs physical conditioning to carry pt' s weight and develop strength if surgery is even contemplated. Status: Chronic
[2017-08-02] MEDS ORDERED: GlipiZIDE 2.5 mg Tab PO SCH (13:30)
[2017-08-02 13:37] LABS: CCP IGG <16 Units (<20)
--- NOTE | 2017-08-02 13:39 | CP.PCM.DIS ---
Provider - Provider Date of Admission: 07/29/17 14:47 Attending physician: Zhen Felton MD Primary care physician: DR. Zhen Felton Consults: Dr. Pio Garcia--Orthopedics Dr. 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 MULTIPLE SPECIES. PROBABLE CONTAMINATION. Most Recent Lab Values WBC 7.3 K/uL (4.8-10.8) 07/31/17 06:15 RBC 4.02 Mil/uL (3.80-5.20) 07/31/17 06:15 Hgb 11.5 g/dL (11.0-16.0) 07/31/17 06:15 Hct 34.5 % (34.0-47.0) 07/31/17 06:15 MCV 85.8 fL (81.0-99.0) 07/31/17 06:15 MCH 28.6 pg (27.0-31.0) 07/31/17 06:15 MCHC 33.4 g/dL (33.0-37.0) 07/31/17 06:15 RDW 15.0 % (11.5-14.5) H 07/31/17 06:15 Plt Count 201 K/uL (130-400) 07/31/17 06:15 MPV 9.3 fL (7.2-11.7) 07/31/17 06:15 Neut % (Auto) 49.2 % (50.0-75.0) L 07/31/17 06:15 Lymph % (Auto) 38.6 % (20.0-40.0) 07/31/17 06:15 [place] % (Auto) 8.5 % (0.0-10.0) 07/31/17 06:15 Eos % (Auto) 3.0 % (0.0-4.0) 07/31/17 06:15 Baso % (Auto) 0.7 % (0.0-2.0) 07/31/17 06:15 Neut # 3.6 K/uL (1.8-7.0) 07/31/17 06:15 Lymph # 2.8 K/uL (1.0-4.3) 07/31/17 06:15 [place] # 0.6 K/uL (0.0-0.8) 07/31/17 06:15 Eos # 0.2 K/uL (0.0-0.7) 07/31/17 06:15 Baso # 0.0 K/uL (0.0-0.2) 07/31/17 06:15 Sodium 135 mmol/L (132-148) 07/31/17 06:15 Potassium 4.2 mmol/L (3.6-5.2) 07/31/17 06:15 Chloride 101 mmol/L (98-107) 07/31/17 06:15 Carbon Dioxide 23 mmol/L (22-30) 07/31/17 06:15 Anion Gap 15 (10-20) 07/31/17 06:15 BUN 22 mg/dL (7-17) H 07/31/17 06:15 Creatinine 0.8 mg/dL (0.7-1.2) 07/31/17 06:15 Est GFR ( Amer) > 60 07/31/17 06:15 Est GFR (Non-Af Amer) > 60 07/31/17 06:15 POC Glucose (mg/dL) 265 mg/dL (65-110) H 08/01/17 15:58 Random Glucose 184 mg/dL (65-105) H 07/31/17 06:15 Calcium 8.7 mg/dl (8.6-10.4) 07/31/17 06:15 Phosphorus 3.3 mg/dL (2.5-4.5) 07/29/17 13:52 Magnesium 1.2 mg/dL (1.6-2.3) L 07/29/17 13:52 Total Bilirubin 0.6 mg/dL (0.2-1.3) 07/29/17 13:52 AST 19 U/L (14-36) 07/29/17 13:52 ALT 16 U/L (9-52) 07/29/17 13:52 Alkaline Phosphatase 59 U/L (38-126) 07/29/17 13:52 Total Creatine Kinase 86 U/L (30-135) 07/29/17 13:52 Troponin I < 0.0120 ng/mL (0.00-0.120) 07/29/17 13:52 NT-Pro-B Natriuret Pep 749 pg/mL (0-900) 07/29/17 13:52 Total Protein 8.2 g/dL (6.3-8.3) 07/29/17 13:52 Albumin 3.7 g/dL (3.5-5.0) 07/29/17 13:52 Globulin 4.6 gm/dL (2.2-3.9) H 07/29/17 13:52 Albumin/Globulin Ratio 0.8 (1.0-2.1) L 07/29/17 13:52 Urine Color Yellow (YELLOW) 07/30/17 23:01 Urine Clarity Hazy (Clear) 07/30/17 23:01 Urine pH 5.0 (5.0-8.0) 07/30/17 23:01 Ur Specific [place] 1.016 (1.003-1.030) 07/30/17 23:01 Urine Protein 2+ mg/dL (NEGATIVE) H 07/30/17 23:01 Urine Glucose (UA) Normal mg/dL (Normal) 07/30/17 23: Urine Ketones Negative mg/dL (NEGATIVE) 07/30/17 23:01 Urine Blood 3+ (NEGATIVE) H 07/30/17 23:01 Urine Nitrate Negative (NEGATIVE) 07/30/17 23: Urine Bilirubin Negative (NEGATIVE) 07/30/17 23: Urine Urobilinogen Normal mg/dL (0.2-1.0) 07/30/17 23:01 Ur Leukocyte Esterase 3+ Edgar/uL (Negative) H 07/30/17 23:01 Urine WBC (Auto) 528 /hpf (0-5) H 07/30/17 23: Urine RBC (Auto) 124 /hpf (0-3) H 07/30/17 23:01 Urine WBC Clumps (Auto) Few /hpf (NONE) H 07/30/17 23:01 Ur Squamous Epith Cells 2 /hpf (0-5) 07/30/17 23:01 Ur Transition Epith Cell 1 /hpf (0-3) 07/30/17 23:01 Amorphous Sediment Rare /ul (<OCC) H 07/29/17 14:16 Urine Bacteria Few (<OCC) H 07/30/17 23:01 Cycl Citrul Peptide IgG <16 Units (<20) 07/31/17 06:15 MARTÍNEZ 6 Profile Negative (NEGATIVE) 07/31/17 06:15 - Hospital Course Hospital Course: Pt is known to me from home visits x 2 after daughter requested that I take care of her mother. Pt was noted to be always in her reclining chair in which she also sleeps, eats and drinks, as well as performs all her bowel and bladder functions on a diaper. She does not have any help during the day, and is essentially alone. > Pt has not been able to ambulate by herself bec, as I was told, her lower extremity weakness for lack of use since January. Pt was worked up this admission and pt has not been able to ambulate 2ndry to severe osteoarthritis of bilateral shoulders and bilateral knees, as well as a long-standing urinary tract infection which produced incontinence. Cardiac work up also revealed severe aortic stenosis which would make her short of breath with the slightest exertion. Despite all this, pt was able to show some improvement in her ambulation in the few days she was inpatient, and further strengthening would only be beneficial for her. Hence the referral to [facility] for inpatient rehab. - Date & Time of H&P Date of H&P: 08/02/17 Discharge Exam - Head Exam Head Exam: NORMAL INSPECTION - Eye Exam Eye Exam: Normal appearance Pupil Exam: NORMAL ACCOMODATION - ENT Exam ENT Exam: Normal Exam - Neck Exam Neck exam: Normal Inspection - Respiratory Exam Respiratory Exam: Clear to PA & Lateral, NORMAL BREATHING PATTERN - Cardiovascular Exam Cardiovascular Exam: REGULAR RHYTHM Additional comments: paced - GI/Abdominal Exam GI & Abdominal Exam: Normal Bowel Sounds - Rectal Exam Rectal Exam: Deferred - Back Exam Back exam: NORMAL INSPECTION - Neurological Exam Neurological exam: Abnormal Gait, Alert, CN II-XII Intact, Oriented x3 - Psychiatric Exam Psychiatric exam: Normal Affect, Normal Mood - Skin Skin Exam: Dry, Normal Color, Warm Discharge Plan - Discharge Medications Prescriptions: hydrALAZINE [hydralazine Hydrochloride] 25 mg PO Q12 #60 tab SITagliptin [Januvia] 50 mg PO PCS #30 tab Losartan Potassium 100 mg PO DAILY #30 tablet - Follow Up Plan Condition: FAIR Disposition: REHAB FACILITY/REHAB UNIT Patient education suggested?: No
--- NOTE | 2017-08-02 16:55 | CARD ---
APPROVED REPORT EKG Measurement Heart [id number] <Conclusion> Atrial-sensed ventricular-paced rhythm Abnormal ECG
[2017-08-02] MEDS ORDERED: GlipiZIDE 2.5 mg Tab PO STA (16:58)
[2017-08-03] MEDS: Naproxen 275 mg Tab PO SCH (09:48)
[2017-08-03] MEDS: Metoprolol Succinate 100 mg XL Tab PO SCH (09:48)
[2017-08-03] MEDS: Enoxaparin 40 mg Syringe SC SCH (09:51)
[2017-08-03 10:53] VITALS: TEMP 98.1
[2017-08-03] MEDS ORDERED: GlipiZIDE 2.5 mg Tab PO SCH (13:00)
[2017-08-03 16:35] VITALS: BP 161/90; PULSE 71; O2SAT 97
== END 2017-08-03 17:00 | DRG 690 ==
LOC: C.ER 12:12 → C.9E 14:47 → C.3T 16:23 → C.9E 16:26 → C.3T 16:31 → C.9E 16:42 → C.3T 22:03
PROVIDERS: ADMIT Family Medicine; ATTEND Family Medicine
DX: N39.0 Urinary tract infection, site not specified (principal); I48.91 Unspecified atrial fibrillation; E10.9 Type 1 diabetes mellitus without complications; I35.0 Nonrheumatic aortic (valve) stenosis; I10 Essential (primary) hypertension; M17.0 Bilateral primary osteoarthritis of knee; M75.101 Unspecified rotator cuff tear or rupture of right shoulder, not specified as traumatic; M75.102 Unspecified rotator cuff tear or rupture of left shoulder, not specified as traumatic; R32 Unspecified urinary incontinence; R26.9 Unspecified abnormalities of gait and mobility; Z79.4 Long term (current) use of insulin; Z87.11 Personal history of peptic ulcer disease; Z95.0 Presence of cardiac pacemaker